=== PATIENT | male | born 1965 | race Hispanic/Latino ===

== ENCOUNTER 2019-12-21 08:53 | Inpatient (IN) | payer BC ==
[~2019-12-21] VITALS: Ht 160 cm; Wt 107.8 kg
[2019-12-21 09:42] LABS: BASOPHILS % (AUTO) 0.1 % (0.0-5.0); LYMPHOCYTES % (AUTO) 15.9 % (21.0-51.0); MEAN CORPUSCULAR HEMOGLOBIN 28.9 pg (27.0-33.0); MEAN CORPUSCULAR HGB CONC 33.7 g/dL (32.0-36.0); MEAN CORPUSCULAR VOLUME 85.8 fL (79-99); MONOCYTES % (AUTO) 5.4 % (3.0-13.0); NEUTROPHILS % (AUTO) 78.3 % (40.0-77.0); PLATELET COUNT (AUTO) 161 K/uL (130-400); RED BLOOD CELL COUNT(AUTO) 5.01 MIL/uL (4.50-6.20); RED CELL DISTRIBUTION WIDTH 13.8 % (11.0-15.5); WHITE BLOOD COUNT (AUTO) 8.7 K/uL (4.8-10.8)
[2019-12-21 10:00] LABS: INR 1.01 (0.85-1.15); PARTIAL THROMBOPLASTIN TIME 29.5 SEC (26.3-35.5); PROTHROMBIN TIME 10.9 SEC (9.6-11.6)
[2019-12-21 10:02] LABS: CREATININE 0.7 mg/dL (0.5-1.5); POTASSIUM 3.4 mmol/L (3.5-5.1)
[2019-12-21 10:07] LABS: ALBUMIN 2.9 g/dL (3.5-5.0); BILIRUBIN,TOTAL 0.8 mg/dL (0.2-1.0); TOTAL PROTEIN, SERUM 6.8 g/dL (6.0-8.3)
[2019-12-21] MEDS ORDERED: LACTULOSE 20 GM/30 ML UDCUP PO PRN (10:45)
[2019-12-21] MEDS ORDERED: ONDANSETRON HCL 4 MG/2 ML VIAL IV PRN (10:45)
[2019-12-21] MEDS ORDERED: ACETAMINOPHEN 325 MG TAB PO PRN ×2 (10:45)
[2019-12-21] MEDS ORDERED: HYDRALAZINE HCL 20 MG/ML VIAL IV PRN (10:45)
[2019-12-21] MEDS ORDERED: METHYLPREDNISOLONE SOD SUCC 40MG/ML 1ML ONE (11:18)
[2019-12-21] MEDS ORDERED: AZITHROMYCIN 500MG+NS 250ML 250 ML IV ONE (11:19)
[2019-12-21] MEDS ORDERED: ENOXAPARIN SODIUM 40 MG/0.4 ML SYRINGE SQ ONE (11:19)
[2019-12-21] MEDS ORDERED: CEFTRIAXONE SODIUM 1 GM ONE (11:19)
[2019-12-21] MEDS ORDERED: FAMOTIDINE/PF 20 MG/2 ML VIAL IV ONE (11:20)
[2019-12-21 12:05] LABS: ABG BASE EXCESS 0.7 mmol/L (-2.0-3.0); ABG HCO3 25.8 mmol/L (21.0-28.0); ABG OXYGEN SATURATION 98.9 % (95.0-99.0); ABG PCO2 43 mmHg (35-48)
[2019-12-21 12:12] LABS: HEMOGLOBIN A1C 7.4 % (4.0-6.0)
[2019-12-21 12:20] VITALS: BP 117/74
[2019-12-21 12:22] LABS: CRP QUANTITATIVE 189.5 mg/L (0.00-9.0)
--- NOTE | 2019-12-21 12:30 | NUR ---
Left message for Emperatriz Flores [phone] to complete initial assessment
--- NOTE | 2019-12-21 13:03 | NUR ---
DCP: HOME Sw spoke to pt's Emperatriz Flores [phone]. Per pt lives at home with her. Pt is independent, works, no DME or in home care services. PCP is Mahesh Saravia and her uses [facility] for rx. Per pt [facility] 19 [facility] states son in law works for [employer] and tested positive. She and were tested on and was positive, pt was negative. Pt and their daughter re tested on and were told on they were both positive. Home is plan at wi. CM aware of above
[2019-12-21] MEDS ORDERED: ATOR10 PO (13:26)
[2019-12-21] MEDS ORDERED: ASPI-1005 PO (13:26)
[2019-12-21] MEDS ORDERED: METF-444 PO (13:26)
[2019-12-21 16:00] VITALS: BP 152/69
[2019-12-21] MEDS: METHYLPREDNISOLONE SOD SUCC 125MG/2ML VIAL IV SCH (17:23)
[2019-12-21 20:00] VITALS: BP 118/71
[2019-12-21] MEDS: FAMOTIDINE/PF 20 MG/2 ML VIAL IV SCH (20:02)
[2019-12-21] MEDS: ENOXAPARIN SODIUM 40 MG/0.4 ML SYRINGE SQ SCH (20:02)
--- NOTE | 2019-12-21 21:00 | NUR ---
PT HAD LOW GRADE TEMP AT 99. HAS BEEN RUNNING THIS SINCE ADMISSION. PREVIOUSLY PT STATES HE WAS AT 102. SOB NOTED. ON O2 AT 4LPM. PENDING SPUTUM COLLECTION. ABLE TO AMBULATE WITH MINIMAL ASSIST. ABLE TO TAKE MEDICATIONS WELL.
[2019-12-22] VITALS: BP 113/67
[2019-12-22] MEDS: METHYLPREDNISOLONE SOD SUCC 125MG/2ML VIAL IV SCH ×2 (03:34→10:38)
[2019-12-22 04:00] VITALS: BP 105/60
[2019-12-22] MEDS: INSULIN HUMULIN R 100 UNIT/ML 3ML SQ SCH ×4 (06:10→21:12)
--- NOTE | 2019-12-22 08:00 | NUR ---
ASSESSMENT PT IS AAOX3 DENIES CP DENIES SOB DENIES NV NO COMPLAINTS SITTING UPRIGHT IN CHAIR. O2 VIA NC AT 3LPM. NO VISIBLE SIGNS OF DISTRESS NOTED. CALL LIGHT WITHIN REACH.
[2019-12-22 08:03] VITALS: BP 122/76
[2019-12-22] MEDS ORDERED: AZITHROMYCIN 500MG+NS 250ML 250 ML IV ONE (08:11)
[2019-12-22] MEDS: AZITHROMYCIN 500MG+NS 250ML 250 ML IV SCH (08:13)
[2019-12-22] MEDS: ENOXAPARIN SODIUM 40 MG/0.4 ML SYRINGE SQ SCH ×2 (08:13→19:17)
[2019-12-22] MEDS: FAMOTIDINE/PF 20 MG/2 ML VIAL IV SCH ×2 (08:13→19:17)
[2019-12-22] MEDS: CEFTRIAXONE SODIUM 1 GM IV SCH (08:13)
[2019-12-22] MEDS ORDERED: ENOXAPARIN SODIUM 40 MG/0.4 ML SYRINGE SQ SCH (09:00)
[2019-12-22 16:17] VITALS: BP 110/65
[2019-12-22 20:00] VITALS: BP 116/71
[2019-12-22 23:47] VITALS: BP 110/78
[2019-12-23 04:00] VITALS: BP 118/81
[2019-12-23 06:00] LABS: BASOPHILS % (AUTO) 0.1 % (0.0-5.0); LYMPHOCYTES % (AUTO) 20.4 % (21.0-51.0); MEAN CORPUSCULAR HEMOGLOBIN 29.4 pg (27.0-33.0); MEAN CORPUSCULAR HGB CONC 33.7 g/dL (32.0-36.0); MEAN CORPUSCULAR VOLUME 87.2 fL (79-99); MONOCYTES % (AUTO) 6.7 % (3.0-13.0); NEUTROPHILS % (AUTO) 72.3 % (40.0-77.0); PLATELET COUNT (AUTO) 210 K/uL (130-400); RED BLOOD CELL COUNT(AUTO) 4.93 MIL/uL (4.50-6.20); RED CELL DISTRIBUTION WIDTH 13.2 % (11.0-15.5); WHITE BLOOD COUNT (AUTO) 11.1 K/uL (4.8-10.8)
--- NOTE | 2019-12-23 06:00 | NUR ---
PT HAS IMPROVED. OXYGENATION MORE STABLE. CONT ON 3LPM. ABLE TO AMBULATE WITHOUT IT. DOES GET SOB WITH AMBULATION. NO PAIN. AAO3. PERRLA.
[2019-12-23] MEDS: INSULIN HUMULIN R 100 UNIT/ML 3ML SQ SCH ×4 (06:11→20:47)
[2019-12-23 06:18] LABS: CREATININE 0.7 mg/dL (0.5-1.5); POTASSIUM 3.9 mmol/L (3.5-5.1)
[2019-12-23 07:40] VITALS: BP 114/73
[2019-12-23] MEDS: CEFTRIAXONE SODIUM 1 GM IV SCH (08:06)
[2019-12-23] MEDS: FAMOTIDINE/PF 20 MG/2 ML VIAL IV SCH ×2 (08:06→20:59)
[2019-12-23] MEDS: ENOXAPARIN SODIUM 40 MG/0.4 ML SYRINGE SQ SCH ×2 (08:07→20:59)
[2019-12-23] MEDS: AZITHROMYCIN 500MG+NS 250ML 250 ML IV SCH (08:09)
[2019-12-23 11:50] VITALS: BP 110/72
[2019-12-23 16:14] VITALS: BP 92/58
[2019-12-23 19:36] VITALS: BP 113/72
--- NOTE | 2019-12-23 22:45 | NUR ---
HOME 02 EVALUATION COMPLETED. RT STATED PT WAS AT 86%. DID GET SOB, AND CONTINUES WITH COUGH.
[2019-12-23 23:47] VITALS: BP 102/72
[2019-12-24 03:49] VITALS: BP 106/64
[2019-12-24 05:16] LABS: BASOPHILS % (AUTO) 0.2 % (0.0-5.0); EOSINOPHILS % (AUTO) 0.2 % (0.0-8.0); HEMATOCRIT 43.2 % (42-54); LYMPHOCYTES % (AUTO) 26.1 % (21.0-51.0); MEAN CORPUSCULAR HGB CONC 33.3 g/dL (32.0-36.0); MEAN CORPUSCULAR VOLUME 86.9 fL (79-99); MONOCYTES % (AUTO) 6.7 % (3.0-13.0); PLATELET COUNT (AUTO) 213 K/uL (130-400); RED BLOOD CELL COUNT(AUTO) 4.97 MIL/uL (4.50-6.20); RED CELL DISTRIBUTION WIDTH 13.6 % (11.0-15.5); WHITE BLOOD COUNT (AUTO) 8.6 K/uL (4.8-10.8)
[2019-12-24 05:34] LABS: CREATININE 0.8 mg/dL (0.5-1.5); POTASSIUM 3.6 mmol/L (3.5-5.1)
[2019-12-24] MEDS: INSULIN HUMULIN R 100 UNIT/ML 3ML SQ SCH ×4 (05:51→21:00)
[2019-12-24 07:52] VITALS: BP 115/79
[2019-12-24] MEDS: CEFTRIAXONE SODIUM 1 GM IV SCH (09:04)
[2019-12-24] MEDS: FAMOTIDINE/PF 20 MG/2 ML VIAL IV SCH ×2 (09:04→22:25)
[2019-12-24] MEDS: AZITHROMYCIN 500MG+NS 250ML 250 ML IV SCH (09:04)
[2019-12-24] MEDS: ENOXAPARIN SODIUM 40 MG/0.4 ML SYRINGE SQ SCH ×2 (09:05→22:25)
[2019-12-24 11:27] VITALS: BP 121/80
--- NOTE | 2019-12-24 12:18 | NUR ---
BEDSIDE REPORT GIVEN TO BASSEM FERGUSON
--- NOTE | 2019-12-24 14:02 | NUR ---
DC PLAN FORMS FOR SIGNED BY DR. MAXWELL THIS AFTERNOON. INFO SENT TO [facility]IENT. DUE TO [facility] NOT SURE OF [facility] IS OPEN TODAY. Addendum: 12/24/19 at 1409 by KATY GARCIA RN CM Amended: Links added.
[2019-12-24 16:22] VITALS: BP 124/78
[2019-12-24 19:32] VITALS: BP 120/70
[2019-12-24 23:55] VITALS: BP 98/54
[2019-12-25 03:35] VITALS: BP 100/57
[2019-12-25 05:02] LABS: BASOPHILS % (AUTO) 0.4 % (0.0-5.0); HEMATOCRIT 43.7 % (42-54); LYMPHOCYTES % (AUTO) 20.9 % (21.0-51.0); MEAN CORPUSCULAR VOLUME 87.9 fL (79-99); MONOCYTES % (AUTO) 7.8 % (3.0-13.0); NEUTROPHILS % (AUTO) 67.6 % (40.0-77.0); PLATELET COUNT (AUTO) 218 K/uL (130-400); RED BLOOD CELL COUNT(AUTO) 4.97 MIL/uL (4.50-6.20); RED CELL DISTRIBUTION WIDTH 13.3 % (11.0-15.5); WHITE BLOOD COUNT (AUTO) 7.1 K/uL (4.8-10.8)
[2019-12-25 05:26] LABS: CREATININE 0.9 mg/dL (0.5-1.5); CRP QUANTITATIVE 126.2 mg/L (0.00-9.0); POTASSIUM 3.9 mmol/L (3.5-5.1)
[2019-12-25] MEDS: INSULIN HUMULIN R 100 UNIT/ML 3ML SQ SCH ×3 (06:07→16:11)
[2019-12-25] MEDS: CEFTRIAXONE SODIUM 1 GM IV SCH (08:22)
[2019-12-25] MEDS: AZITHROMYCIN 500MG+NS 250ML 250 ML IV SCH (08:23)
[2019-12-25] MEDS: ENOXAPARIN SODIUM 40 MG/0.4 ML SYRINGE SQ SCH (08:23)
[2019-12-25 08:41] VITALS: BP 114/72
[2019-12-25] MEDS ORDERED: FAMOTIDINE 20MG TAB 20 MG TAB PO SCH (09:00)
--- NOTE | 2019-12-25 11:16 | NUR ---
DC PLAN CALLED [facility]. PACKET RECEIVED BEING PROCESSED PENDING INSURANCE AUTHORIZATION. Addendum: 12/25/19 at 1116 by KATY GARCIA RN CM Amended: Links added.
[2019-12-25 12:14] VITALS: BP 110/76
== END 2019-12-25 16:45 | disposition home or self-care (01) | DRG 871 ==
LOC: EDH 08:53 → EDHIP 10:38 → 2DH 11:45
PROVIDERS: ADMIT Internal Medicine; ATTEND Internal Medicine
DX: A41.89 Other specified sepsis (principal); J12.89 Other viral pneumonia; U07.1 COVID-19; J96.01 Acute respiratory failure with hypoxia; Z68.41 Body mass index [BMI] 40.0-44.9, adult; E11.9 Type 2 diabetes mellitus without complications; E66.01 Morbid (severe) obesity due to excess calories; E78.5 Hyperlipidemia, unspecified; I10 Essential (primary) hypertension; Z83.3 Family history of diabetes mellitus
CPT/HCPCS: 36415; 36600; 71045; 80048; 80053; 82550; 82728; 82803; 82948; 83036; 83605; 84145; 84484; 85025; 85378; 85610; 85730; 86140; 87040; 87071; 87205; 87486; 87581; 87633; 87798; 93005; 94667; 94668; 94760; 99291; G0378; J0456; J0696; J1650; J1815; J2920; J2930; J3490

== ENCOUNTER → 2023-02-04 | Outpatient (CLI) | payer OTHER ==
[~2023-02-04] MED LIST: ASPI-1005 PO; ATOR10 PO; METF-444 PO
== END | disposition home or self-care (01) ==
LOC: LAB 08:39
PROVIDERS: ATTEND Internal Medicine Gastroenterology
DX: R93.3 Abnormal findings on diagnostic imaging of other parts of digestive tract (principal); K86.9 Disease of pancreas, unspecified
CPT/HCPCS: 36415; 82565; 84520

== ENCOUNTER → 2023-02-09 | Outpatient (CLI) | payer OTHER ==
[~2023-02-09] MED LIST changes: +IOHEXOL-350 75 ML VIAL IV ONE
== END | disposition home or self-care (01) ==
LOC: RAH 07:39
PROVIDERS: ATTEND Internal Medicine Gastroenterology
DX: K80.20 Calculus of gallbladder without cholecystitis without obstruction (principal); K86.9 Disease of pancreas, unspecified; R93.3 Abnormal findings on diagnostic imaging of other parts of digestive tract
CPT/HCPCS: 74160; Q9967

== ENCOUNTER → 2025-02-21 | Outpatient (CLI) | payer OTHER ==
[~2025-02-21] MED LIST changes: -IOHEXOL-350 75 ML VIAL IV ONE
--- NOTE | 2025-02-21 14:33 | HMCIMG ---
EXAM: CT Abdomen and Pelvis without Intravenous Contrast CLINICAL HISTORY: PAIN TECHNIQUE: Axial computed tomography images of the abdomen and pelvis without intravenous contrast. Dose reduction technique was used including one or more of the following: automated exposure control, adjustment of mA and kV according to patient size, and/or iterative reconstruction. CONTRAST: None; COMPARISON: CT abdomen pelvis 07/07/2023 FINDINGS: LUNG BASES: Atelectasis in the lung bases. LIVER: Unremarkable. GALLBLADDER AND BILE DUCTS: Multiple gallstones are seen. No ductal dilation. PANCREAS: Unremarkable. SPLEEN: Unremarkable. ADRENAL GLANDS: Unremarkable. KIDNEYS, URETERS, AND BLADDER: Unremarkable. No hydronephrosis or nephrolithiasis. No ureteral or bladder calculi. STOMACH AND BOWEL: No obstruction. No wall thickening. No CT evidence of colitis or acute diverticulitis. APPENDIX: No CT evidence for appendicitis. PERITONEUM: No free fluid. No free air. LYMPH NODES: No lymphadenopathy. REPRODUCTIVE: Unremarkable as visualized. VASCULATURE: No aortic aneurysm. ABDOMINAL WALL AND SOFT TISSUES: Nonspecific fat stranding identified. BONES: No fracture or suspicious osseous abnormality. IMPRESSION: 1. Multiple gallstones, similar to prior study of CT abdomen pelvis on 02/09/2023. 2. Nonspecific fat stranding, otherwise unremarkable. /Robert Lee
== END | disposition home or self-care (01) ==
LOC: RAH 10:24
PROVIDERS: ATTEND Internal Medicine Gastroenterology
DX: K80.20 Calculus of gallbladder without cholecystitis without obstruction (principal); R93.3 Abnormal findings on diagnostic imaging of other parts of digestive tract; J98.11 Atelectasis
CPT/HCPCS: 74176